=== PATIENT | male | born 1970 | race Caucasian/White ===

== ENCOUNTER 2016-10-09 12:34 | Emergency (ER) | payer SELFPAY ==
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
--- NOTE | 2016-10-09 14:34 | RAD ---
Indication: Right hip and pelvis pain. CT of the pelvis was obtained in the axial plane. Sagittal and coronal reconstructed images were obtained. The iliac crest and ilium shows no fracture. Sacroiliac joints are intact. The lower lumbar spine demonstrates no evidence of fracture. The acetabulum is intact. No fracture is identified. No joint effusion The bladder is otherwise unremarkable. Seminal vesicles are otherwise unremarkable. IMPRESSION: No fracture of the right hip or pelvis is noted.
[2016-10-09] MEDS ORDERED: Ibuprofen TAB* 600 MG PO ONE (14:41)
[2016-10-09 15:02] VITALS: BP 134/85
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
== END 2016-10-09 15:02 | disposition home or self-care (01) ==
LOC: ED 12:34
DX: S06.0X0A Concussion without loss of consciousness, initial encounter (principal); S70.01XA Contusion of right hip, initial encounter; S16.1XXA Strain of muscle, fascia and tendon at neck level, initial encounter; S39.012A Strain of muscle, fascia and tendon of lower back, initial encounter; S70.00XA Contusion of unspecified hip, initial encounter; R11.10 Vomiting, unspecified; Z72.0 Tobacco use; V49.9XXA Car occupant (driver) (passenger) injured in unspecified traffic accident, initial encounter; Y93.9 Activity, unspecified; Y92.9 Unspecified place or not applicable
CPT/HCPCS: 70450; 72125; 72128; 72131; 72192; 99283; A9270-GY

== ENCOUNTER 2017-06-19 13:35 | Emergency (ER) | payer BC, OTHER ==
--- NOTE | 2017-06-19 15:26 | RAD ---
INDICATION: Soft tissue injury to the proximal interphalangeal joints of the third and fourth digits after accidentally punching a concrete wall. COMPARISON: None. TECHNIQUE: 4 views of the right hand were obtained. FINDINGS: The adequately corticated bones are in normal alignment. No significant focal osseous abnormality or fracture is seen. Joint spaces appear maintained. IMPRESSION: Normal right hand radiograph. If the patient's symptoms persist, follow-up imaging is recommended.
--- NOTE | 2017-06-19 15:28 | ED ---
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 Patient states injuries did bleed a lot in the beginning but have since become controlled. No on anticoagulants. Denies any other injuries. Has full range of motion however does cause pain in 4/5th digit. 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 Denies numbness/tingling. Unknown last tetanus. Is right hand dominant. No other complaints. No PMHx. - History of Current Complaint Stated Complaint: RIGHT HAND LAX Time Seen by Provider: 06/19/17 13:57 Hx Obtained From: Patient Mechanism of Injury: Sharp/Blunt Trauma Onset/Duration: Sudden Onset, Lasting Hours, Still Present Aggravating: Movement Alleviating: Compression Timing: Constant Onset Severity: Mild Current Severity: Mild Pain Intensity: 2 Pain Scale Used: 0-10 Numeric Associated Signs & Symptoms: Pain, Bruising, Joint Swelling - PIP of 4/5th digit Related Hx: Dominant Hand (Right) - Allergy/Home Medications Allergies/Adverse Reactions: Allergies Allergy/AdvReac Type Severity Reaction Status Date / Time No Known Allergies Allergy Verified 05/25/17 13:52 PMH/Surg Hx/FS Hx/Imm Hx Endocrine/Hematology History: Denies: Hx Diabetes, Hx Thyroid Disease Cardiovascular History: Denies: Hx Hypertension, Hx Pacemaker/ICD Respiratory History: Denies: Hx Asthma, Hx Chronic Obstructive Pulmonary Disease (COPD) GI History: Denies: Hx Ulcer History: Denies: Hx Renal Disease Musculoskeletal History: Reports: Hx Back Problems Sensory History: Denies: Hx Hearing Aid Psychiatric History: Denies: Hx Panic Disorder - Surgical History Surgery Procedure, Year, and Place: Tonsillectomy age 15 - Immunization History Date of Tetanus Vaccine: unknown, updated at todays visit 06/19/17 Immunizations Up to Date: Yes Infectious Disease History: No Infectious Disease History: Denies: Hx Clostridium Difficile, Hx Hepatitis, Hx Human Immunodeficiency Virus (HIV), Hx of Known/Suspected MRSA, Hx Shingles, Hx Tuberculosis, History Other Infectious Disease, Traveled Outside the [place] in Last 30 Days - Family History Known Family History: Positive: None Family History: Mother due to arteriosclerosis. - Social History Alcohol Use: Occasionally Substance Use Type: Reports: None Smoking Status (MU): Former Smoker Type: Cigarettes, eCigarettes Amount Used/How Often: 1/2 ppd Review of Systems Constitutional: Negative Cardiovascular: Negative Respiratory: Negative Positive: Arthralgia, Myalgia - 4/5th digit right hand Positive: Other - lacerations 4/5th digit right hand Neurological: Negative All Other Systems Reviewed And Are Negative: Yes Physical Exam Triage Information Reviewed: Yes Vital Signs On Initial Exam: Initial Vitals Temp Pulse Resp BP Pulse Ox 98.5 F 89 17 135/75 98 06/19/17 13:48 06/19/17 13:48 06/19/17 13:48 06/19/17 13:48 06/19/17 13:48 Vital Signs Reviewed: Yes Appearance: Positive: Well-Appearing, No Pain Distress, Well-Nourished Skin: Positive: Warm, Skin Color Reflects Adequate Perfusion, Dry, Other - superficial skin avulsions of 4/5th digit at PIP joints 1cm in length, linear. bleeding controlled, tender to touch. rest of skin exam normal. Negative: Cold , Numb, Cyanosis @, Erythema @ Eyes: Positive: Conjunctiva Clear ENT: Positive: Hearing grossly normal Neck: Positive: Supple, Nontender Respiratory/Lung Sounds: Positive: Clear to Auscultation, Breath Sounds Present. Negative: Rales, Rhonchi, Wheezes Cardiovascular: Positive: Normal, RRR, Pulses are Symmetrical in both Upper and Lower Extremities - 2+ radial b/l. Negative: Murmur, Rub Musculoskeletal: Positive: Strength/ROM Intact - however causes pain at 4/5th digit at PIP due to injury and edema, Pain @ - 4/5th PIP right hand, Edema Right - 4/5th PIP due to injury with laceration/skin avulsion, Other - no crepitus or obvious deformity other than lacerations. Negative: Limited @, Interruption @ Neurological: Positive: Normal, Sensory/Motor Intact - normal sensation, Alert, Oriented to Person Place, Time, NV Bundle Intact Distally, Normal Gait Procedures - Laceration/Wound Repair 1 Location: upper extremity - 4th digit right hand at PIP Description: Linear Length, Depth and Shape: 1cm superficial length linear 4th digit at PIP Betadine Prep?: No Irrigated w/ Saline (ccs): 200 Laceration/Wound Explored: clean, no foreign body removed Closure: Skin Adhesive, SteriStrips - 2 Sterile Dressing Applied?: Yes 2 Location: upper extremity - right 5th digit Description: Linear Length, Depth and Shape: right 5th digit linear 1 cm laceration/skin avulsion at PIP Irrigated w/ Saline (ccs): 300 Laceration/Wound Explored: clean, no foreign body removed Closure: Skin Adhesive, SteriStrips - 2 Sterile Dressing Applied?: Yes Diagnostics - Vital Signs Vital Signs Temp Pulse Resp BP Pulse Ox 06/19/17 13:48 98.5 F 89 17 135/75 98 - Laboratory Lab Statement: Any lab studies that have been ordered have been reviewed, and results considered in the medical decision making process. - Radiology right hand Xray Interpretation: No Acute Changes - Normal right hand radiograph. If the patient's symptoms persist, follow-up imaging is recommended. Radiology Interpretation Completed By: Radiologist - and myself Laceration Repair Course/Dx - Course Course Of Treatment: no concern for tendon bony involvement. xray obtained and negative for fracture/discloation. due to PE findings, skin avulsion/ lacerations were irrigated and closed with steri stripsx2 and skin adhesive. patient tolerated procedure well. Topical LET was used to numb area, to make procedure more comfortable. lacerations became well approximated and closed nicely. wrapped in sterile dressing also keeping fingers from bending for 24-48 hours until wounds are somewhat healed. No concern for infection at this time. tetanus updated today. aware of worsening signs and symptoms. keep clean and dry. do not pick at glue/steri strips. follow up with pcp to ensure improvement. - Differential Dx Differental Diagnoses: Abrasion, Avulsion, Fracture, Laceration - Clinical Impression Provider Diagnoses: Avulsion of skin of finger Discharge - Discharge Plan Condition: Stable Disposition: HOME Patient Education Materials: Skin Avulsion (ED), Skin Adhesive Care (ED), Steristrips (ED) Forms: *Work Release Referrals: Juan Alberto Villavicencio MD [Primary Care Provider] - Additional Instructions: Rest, apply cool compresses. Refrain from bending fingers until wounds heal. Avoid from getting wet for at least 48 hours. Take ibuprofen for pain and inflammation. After 2 days gently rinse and keep clean and dry thoroughly. Avoid submerging in water. Watch for signs of infection as discussed, if develops please seek medical attention promptly. Do not pick at glue or steri strips, let fall off on own. If any complications please return/seek medical attention. Follow up with PCP.
[2017-06-19] MEDS ORDERED: Lidocaine/Epineph/Tetraca SOL* (LET solution) 4 ML BTL TOPICAL ONE (15:49)
[2017-06-19] MEDS ORDERED: Tetan/Diph/Pertus SYR(Tdap)* 0.5 ML SYR(BOOSTRIX) use SYR IM ONE (15:58)
[2017-06-19 16:49] VITALS: BP 128/78
== END 2017-06-19 16:49 | disposition home or self-care (01) ==
LOC: ED 13:35
DX: S61.219A Laceration without foreign body of unspecified finger without damage to nail, initial encounter (principal); W22.01XA Walked into wall, initial encounter; Y92.9 Unspecified place or not applicable; Z23 Encounter for immunization; Z87.891 Personal history of nicotine dependence
CPT/HCPCS: 90471; 90715; 99282

== ENCOUNTER 2017-11-15 08:01 | Emergency (ER) | payer BC ==
[2017-11-15 08:12] VITALS: BP 148/89
--- NOTE | 2017-11-15 08:23 | UC ---
Back Pain HPI - HPI Summary HPI Summary: R low back pain starting a few days ago, no antecedent trauma. No hx of surgery or cancer. Bowel/bladder/sensory normal. Feels pain into R buttock but not in leg. Does have hx of similar back pain, has seen PT and chiropractor before. - History of Current Complaint Chief Complaint: UCBackPain Stated Complaint: BACK PAIN Hx Obtained From: Patient Onset/Duration: Gradual Onset, Lasting Days Timing: Constant Severity Initially: Mild Severity Currently: Moderate Pain Intensity: 9 Character: Dull, Aching, Stiffness Aggravating Factor(s): Lifting, Bending, Other - sitting Alleviating Factor(s): Rest, Position Associated Signs And Symptoms: Positive: Negative. Negative: Fever, Weakness, Numbness, Tingling, Bladder Incontinence, Bowel Incontinence Related History: Previous Back Injury - fx coccyx - Risk Factors AAA Risk Factors: Negative - Allergies/Home Medications Allergies/Adverse Reactions: Allergies Allergy/AdvReac Type Severity Reaction Status Date / Time No Known Allergies Allergy Verified 11/15/17 08:12 PMH/Surg Hx/FS Hx/Imm Hx Previously Healthy: Yes - Surgical History Surgical History: Yes Surgery Procedure, Year, and Place: Tonsillectomy age 15 - Family History Known Family History: Positive: Cardiac Disease Family History: Mother due to arteriosclerosis. - Social History Occupation: Employed Full-time - [employer] Alcohol Use: Occasionally Substance Use Type: None Smoking Status (MU): Light Every Day Tobacco Smoker Type: Cigarettes, eCigarettes Amount Used/How Often: 1/2 ppd Review of Systems Constitutional: Negative Skin: Negative Eyes: Negative ENT: Negative Respiratory: Negative Cardiovascular: Negative Gastrointestinal: Negative Genitourinary: Negative Motor: Negative Neurovascular: Negative Musculoskeletal: Arthralgia, Decreased ROM Neurological: Negative Psychological: Negative Is Patient Immunocompromised?: No All Other Systems Reviewed And Are Negative: Yes Physical Exam Triage Information Reviewed: Yes Appearance: Well-Appearing, Pain Distress - mod Vital Signs: Initial Vital Signs Temp 97.2 F 11/15/17 08:07 Pulse 89 11/15/17 08:07 Resp 18 11/15/17 08:07 BP 148/89 11/15/17 08:07 Pulse Ox 98 11/15/17 08:07 Vital Signs Reviewed: Yes Eye Exam: Normal Eyes: Positive: Conjunctiva Clear ENT Exam: Normal ENT: Positive: Normal ENT inspection, Hearing grossly normal, Pharynx normal, TMs normal Dental Exam: Normal Neck exam: Normal Neck: Positive: Supple, Nontender, No Lymphadenopathy Respiratory Exam: Normal Respiratory: Positive: Chest non-tender, Lungs clear, Normal breath sounds, No respiratory distress, No accessory muscle use Cardiovascular Exam: Normal Cardiovascular: Positive: RRR, No Murmur Musculoskeletal Exam: Other - diminish rom in low back Musculoskeletal: Positive: Strength Intact, ROM Intact Neurological Exam: Normal Neurological: Positive: Alert Psychological Exam: Normal Skin Exam: Normal Back Pain Course/Dx - Differential Dx/Diagnosis Provider Diagnoses: Low back strain Discharge - Sign-Out/Discharge Documenting (check all that apply): Discharge - Discharge Plan Condition: Stable Disposition: HOME Prescriptions: Etodolac 300 mg PO TID #30 capsule Metaxalone 800 mg PO Q12HR PRN #20 tablet PRN Reason: pain Tizanidine HCl [Zanaflex] 2 mg PO TID PRN #30 cap PRN Reason: Pain Patient Education Materials: Low Back Strain (ED) Forms: *Work Release Referrals: Juan Alberto Villavicencio MD [Primary Care Provider] - 5 Days Additional Instructions: Continue to change positions, stay as active, avoid heavy lifting. Use ice or heat (whatever works) for pain control. - Billing Disposition and Condition Condition: STABLE Disposition: HOME
== END 2017-11-15 08:43 | disposition home or self-care (01) ==
LOC: UCEAST 08:01
DX: S39.012A Strain of muscle, fascia and tendon of lower back, initial encounter (principal); X58.XXXA Exposure to other specified factors, initial encounter; Y93.9 Activity, unspecified; Y92.9 Unspecified place or not applicable; Z87.81 Personal history of (healed) traumatic fracture; F17.210 Nicotine dependence, cigarettes, uncomplicated
CPT/HCPCS: 99212; G0463

== ENCOUNTER 2018-09-02 11:31 | Emergency (ER) | payer BC, OTHER ==
--- OUTSIDE RECORDS SUMMARY | 2018-09-02 11:41 | XMS REPORT | Continuity of Care Document ---
:1970 External Reference #:[id number] Author Name Cece Nava O.D. Address [address] [place] [address] Care Team Providers Name Role Phone Juan Alberto Villavicencio M.D. Primary Care Physician Unavailable Payers Type Date Identification Numbers Payment Provider Subscriber Policy Number: [id number] [facility] [place] PayID: [id number] [address] [place] [id number] Advance Directives Description No Information Available Problems Date Description Provider Status Onset: 06/15/2015 Gastroesophageal reflux disease Cece Nava O.D. Active Onset: 06/15/2015 Essential hypertension Cece Nava O.D. Active Onset: 06/15/2015 Hypercholesterolemia Cece Nava O.D. Active Onset: 07/15/2017 Viral conjunctivitis Cece Nava O.D. Active Onset: 06/25/2015 Myopia Cece Nava O.D. Active Onset: 06/25/2015 Corneal opacity Cece Nava O.D. 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 18 days, 2xday for 3 days, then 1xday for 3 days, both eyes Tobradex 07/15/20 Hx Suspension 0.3-0.1% 10ml 1 drop B30.8 Cece HarmonJude 18 - 4xday , 08/09/19 both O.D. 18 eyes for 4 days then 2xday for 4days. Immunizations Description No Information Available Vital Signs Description No Information Available Results Description No Information Available Procedures Date Code Description Status 07/15/2017 92910 Determination Of Refractive State Completed 07/15/2017 20139 Est Patient Comprehensive Exam Completed 07/14/2016 01090 Determination Of Refractive State Completed 07/14/2016 34549 Est Patient Comprehensive Exam Completed 06/25/2015 69387 Determination Of Refractive State Completed 06/25/2015 24173 Est Patient Comprehensive Exam Completed 06/21/2014 94049 Determination Of Refractive State Completed 06/21/2014 21724 Est Patient Comprehensive Exam Completed 06/21/2014 101 Level 1 SCL Fit/Refit Completed 04/14/2014 08426 Est Patient Intermediate Exam Completed 06/09/2013 69365 Determination Of Refractive State Completed 06/09/2013 89074 Est Patient Comprehensive Exam Completed 06/09/2013 201 Refit - No Change In Fit Completed 05/06/2013 82589 Est Patient Intermediate Exam Completed 12/15/2011 201 Refit - No Change In Fit Completed 12/15/2011 43422 Est Patient Comprehensive Exam Completed 12/15/2011 74058 Determination Of Refractive State Completed 08/10/2009 66711 Determination Of Refractive State Completed 08/10/2009 64400 Est Patient Comprehensive Exam Completed 08/10/2009 201 Refit - No Change In Fit Completed 03/17/2008 38023 Determination Of Refractive State Completed 03/17/2008 91066 Est Patient Comprehensive Exam Completed 03/17/2008 201 Refit - No Change In Fit Completed 04/07/2007 67573 Determination Of Refractive State Completed 04/07/2007 41754 Est Patient Comprehensive Exam Completed 04/07/2007 201 Refit - No Change In Fit Completed 11/21/2005 37606 Determination Of Refractive State Completed 11/21/2005 02449 Est Patient Comprehensive Exam Completed 11/21/2005 202 Refit SCL Completed 10/23/2003 45577 Determination Of Refractive State Completed 10/23/2003 01840 Est Patient Comprehensive Exam Completed Encounters Type Date Location Provider Dx Diagnosis Office Visit 07/23/2017 Cece Kessler B30.8 Other viral 8:30a juliet WHALEY O.D. conjunctivitis Office Visit 04/15/2014 Eliana Kessler, 370.00 Corneal Ulcer 10:00a juliet WHALEY O.D. (Infectious) Office Visit 2013 Cece Kessler 370.00 Corneal Ulcer 2:00p juliet WHALEY O.D. (Infectious) Plan of Treatment 08/11/2018 - Cece Nava O.D.H17.89 Other corneal scars and opacitiesFollow up:1 Year Follow Up / CL FIT You can expect to have your eyes dilated at your next visit. If Dr. Nava orders any additional testing, it may require extra time. We recommend that you bring sunglasses,as dilation drops often make you light sensitive until they wear off. We always recommend you bring someone to drive you home if you are uncomfortable driving with your eyes dilated. If you have any questions before your next visit, feel free to call our office at .[email or web address] Myopia, bilateralComments:You have Myopia, or near sightedness. I have given you a prescription for glasses.
--- NOTE | 2018-09-02 11:59 | ED ---
Influenza-Like Illness - HPI Summary HPI Summary: This patient is a 48 year old male presenting to the emergency room with a cc of flu like sx that began two days ago and have progressed. The patient states he has been having a fever, myalgia, chest tightness, a productive cough with brown sputum, and diaphoresis at night. He states the constant cough is giving him a headache. He states the chest tightness is 6/10 in severity and is worse when he coughs. He has no past medical history and only has had his tonsils removed for surgery. He quit smoking cigarettes 4 year ago. - History of Current Complaint Chief Complaint: EDFluSymptoms Time Seen by Provider: 09/02/18 11:37 Hx Obtained From: Patient Onset/Duration: Lasting Days - 2, Still Present Severity: Moderate Associated Signs & Symptoms: Fever, Myalgia, Cough, Headache - Allergy/Home Medications Allergies/Adverse Reactions: Allergies Allergy/AdvReac Type Severity Reaction Status Date / Time No Known Allergies Allergy Verified 09/02/18 11:50 PMH/Surg Hx/FS Hx/Imm Hx Endocrine/Hematology History: Denies: Hx Diabetes, Hx Thyroid Disease Cardiovascular History: Denies: Hx Hypertension, Hx Pacemaker/ICD Respiratory History: Denies: Hx Asthma, Hx Chronic Obstructive Pulmonary Disease (COPD) GI History: Denies: Hx Gastrointestinal Bleed, Hx Ulcer History: Denies: Hx Renal Disease Musculoskeletal History: Reports: Hx Back Problems Sensory History: Denies: Hx Hearing Aid Neurological History: Comment Only: Other Neuro Impairments/Disorders - PAIN CLINIC PT Psychiatric History: Denies: Hx Attention Deficit Hyperactivity Disorder, Hx Panic Disorder - Surgical History Surgery Procedure, Year, and Place: Tonsillectomy age 15. CYST REMOVED FROM FINGER - Immunization History Date of Tetanus Vaccine: unknown, updated at todays visit 06/19/17 Immunizations Up to Date: Yes Infectious Disease History: No Infectious Disease History: Denies: Hx Clostridium Difficile, Hx Hepatitis, Hx Human Immunodeficiency Virus (HIV), Hx of Known/Suspected MRSA, Hx Shingles, Hx Tuberculosis, History Other Infectious Disease, Traveled Outside the [place] in Last 30 Days - Family History Known Family History: Positive: Cardiac Disease Family History: Mother due to arteriosclerosis. - Social History Alcohol Use: Weekly Alcohol Amount: 10 DRINKS/WEEK Substance Use Type: Reports: None Smoking Status (MU): Light Every Day Tobacco Smoker Type: eCigarettes Amount Used/How Often: 1/2 ppd Length of Time of Smoking/Using Tobacco: currently smokes e-cigarettes Have You Smoked in the Last Year: Yes Review of Systems Positive: Fever, Skin Diaphoresis Positive: Chest Pain Positive: Cough Positive: Myalgia Positive: Headache All Other Systems Reviewed And Are Negative: Yes Physical Exam - Summary Physical Exam Summary: VITAL SIGNS: Reviewed. GENERAL: Patient is a well-developed and nourished male who is lying comfortable in the stretcher. Patient is not in any acute respiratory distress. HEAD AND FACE: No signs of trauma. No ecchymosis, hematomas or skull depressions. No sinus tenderness. EYES: PERRLA, EOMI x 2, No injected conjunctiva, no nystagmus. EARS: Hearing grossly intact. Ear canals and tympanic membranes are within normal limits. MOUTH: Oropharynx within normal limits. NECK: Supple, trachea is midline, no adenopathy, no JVD, no carotid bruit, no c- spine tenderness, neck with full ROM. CHEST: Symmetric, no tenderness at palpation LUNGS: Clear to auscultation bilaterally. No wheezing or crackles. CVS: Regular rate and rhythm, S1 and S2 present, no murmurs or gallops appreciated. ABDOMEN: Soft, non-tender. No signs of distention. No rebound no guarding, and no masses palpated. Bowel sounds are normal. EXTREMITIES: FROM in all major joints, no edema, no cyanosis or clubbing. NEURO: Alert and oriented x 3. No acute neurological deficits. Speech is normal and follows commands. SKIN: Dry and warm Triage Information Reviewed: Yes Vital Signs On Initial Exam: Initial Vitals Temp Pulse Resp BP Pulse Ox 97.6 F 82 16 133/83 99 09/02/18 11:33 09/02/18 11:33 09/02/18 11:33 09/02/18 11:33 09/02/18 11:33 Vital Signs Reviewed: Yes Diagnostics - Vital Signs Vital Signs Temp Pulse Resp BP Pulse Ox 09/02/18 11:33 97.6 F 82 16 133/83 99 - Laboratory Result Diagrams: 09/02/18 11:54 09/02/18 11:54 Lab Statement: Any lab studies that have been ordered have been reviewed, and results considered in the medical decision making process. - Radiology CXR Radiology Interpretation Completed By: Radiologist Summary of Radiographic Findings: no active cardiopulmonary disease. ED physician has reviewed this report. - EKG 1207 Cardiac Rate: NL EKG Rhythm: Sinus Rhythm - at 74 BPM Summary of EKG Findings: nml axis, no ST elevations Flu Symptom Course/Dx - Course Assessment/Plan: Blood work without a significant abnormality except 4 CRP of 20.95 influenza A is positive. Chest x-ray shows no acute pathology. In the ED course the patient was having some wheezing therefore he was given an albuterol treatment. EKG shows normal sinus rhythm without any ST elevations. I believe that his symptoms are secondary to the influenza A. Therefore the patient was discharged home with follow-up with primary care physician. The patient will be given given an rx for Tamiflu. Patient was instructed to return to the emergency department if he develops any other symptom. - Diagnoses Differential Diagnosis/HQI/PQRI: Positive: Bronchitis, Broncholiolitis, Influenza, Pneumonia, Upper Respiratory Infection Provider Diagnoses: Influenza A Discharge - Sign-Out/Discharge Documenting (check all that apply): Patient Departure Patient Received Moderate/Deep Sedation with Procedure: No - Discharge Plan Condition: Stable Disposition: HOME Prescriptions: Oseltamivir CAP* [Tamiflu CAP*] 75 mg PO BID #10 cap Patient Education Materials: Influenza (ED) Forms: *Work Release Referrals: Juan Alberto Villavicencio MD [Primary Care Provider] - Additional Instructions: Follow up with your primary care physician in 1-3 days. RETURN TO THE EMERGENCY DEPARTMENT FOR CHANGING OR WORSENING SYMPTOMS. - Billing Disposition and Condition Condition: STABLE Disposition: Home - Attestation Statements Document Initiated by Maria Luz: Yes Documenting Scribe: Chris Navarro Provider For Whom Maria Luz is Documenting (Include Credential): Herman Yo MD Scribe Attestation: Chris Manzo , scribed for Herman Yo MD on 09/03/18 at 2048. Scribe Documentation Reviewed: Yes Provider Attestation: The documentation as recorded by the Chris irene accurately reflects the service I personally performed and the decisions made by me, Herman Yo MD Status of Scribe Document: Viewed
[2018-09-02 12:15] LABS: ABS Basophils 0 10^3/ul (0-0.2); ABS Eosinophils 0.1 10^3/ul (0-0.6); ABS Lymphocytes 0.7 10^3/ul (1.0-4.8); ABS Monocytes 0.6 10^3/ul (0-0.8); ABS Neutrophils 2.3 10^3/ul (1.5-7.7); ABS Nucleated RBC 0 10^3/ul; Eosinophil % 1.7 %; Hematocrit 45 % (42-52); Hemoglobin 15.4 g/dl (14.0-18.0); Lymphocyte % 17.9 %; Mean Corpuscular HGB Conc 34 g/dl (31-36); Mean Corpuscular Hemoglobin 28 pg (27-31); Mean Corpuscular Volume 84 fL (80-94); Mean Platelet Volume 7.5 fL (7.4-10.4); Nucleated Red Blood Cells % 0.1; Platelet Count 191 10^3/ul (150-450); Red Blood Count 5.42 10^6/ul (4.00-5.40); Red Cell Distribution Width 13 % (10.5-15); White Blood Count 3.6 10^3/ul (3.5-10.8)
[2018-09-02 12:22] LABS: Influenza A Molecular POSITIVE (Negative)
[2018-09-02] MEDS ORDERED: Albuterol/Ipratropium NEB.SOL* Albuterol 2.5 MG/Ipratropium 0.5 MG 3 ML INH ONE (12:28)
[2018-09-02 12:35] LABS: CKMB ng/mL 0.9 ng/mL (0.6-6.3)
[2018-09-02 12:48] LABS: Albumin 4.4 g/dL (3.2-5.2); Albumin/Globulin Ratio 1.8 (1-3); BUN/Creatinine Ratio 9.7 (8-20); C Reactive Protein 28.06 mg/L (<8.01); Calcium 9.4 mg/dL (8.6-10.3); EGFR African American 93.7 (>60); EGFR Non-African American 77.4 (>60); Globulin 2.5 g/dL (2-4); Potassium 4.3 mmol/L (3.5-5.0); Total Bilirubin 0.3 mg/dL (0.2-1.0); Total Protein 6.9 g/dL (6.4-8.9)
[2018-09-02 13:28] VITALS: BP 119/63
== END 2018-09-02 13:28 | disposition home or self-care (01) ==
LOC: ED 11:31
DX: J10.1 Influenza due to other identified influenza virus with other respiratory manifestations (principal); F17.290 Nicotine dependence, other tobacco product, uncomplicated
CPT/HCPCS: 36415; 71046; 80053; 82550; 82553; 83605; 84484; 85025; 86140; 93005; 99282; A9270-GY

== ENCOUNTER 2019-07-09 14:12 | Emergency (ER) | payer BC, OTHER ==
[2019-07-09 14:24] VITALS: BP 127/74
--- NOTE | 2019-07-09 14:51 | UC ---
Respiratory Complaint HPI - HPI Summary HPI Summary: The patient is a 44-year-old male with a 2 day history of nasal congestion cough and headache. He denies any fever or chills. He denies any myalgias. He states that his cough is productive of phlegm. He has some mild chest pain with coughing spells. He denies any nausea vomiting or diarrhea. He has no history of asthma or pneumonia. - History of Current Complaint Chief Complaint: UCGeneralIllness Stated Complaint: CONGESTED Time Seen by Provider: 07/09/19 14:31 Hx Obtained From: Patient Onset/Duration: Gradual Onset Timing: Constant Severity Initially: Mild Severity Currently: Mild Pain Intensity: 4 Pain Scale Used: 0-10 Numeric Character: Cough: Productive Aggravating Factors: Exertion, Other - talking Associated Signs And Symptoms: Positive: Nasal Congestion, Sinus Discomfort. Negative: Dyspnea, Fever, Chills, Pleuritic Chest Pain, Wheezing, Hemoptysis, Dizziness, Calf Pain, Calf Swelling, Edema, URI, Hoarseness - Allergies/Home Medications Allergies/Adverse Reactions: Allergies Allergy/AdvReac Type Severity Reaction Status Date / Time No Known Allergies Allergy Verified 07/09/19 14:26 Home Medications: Home Medications Acetaminophen [Tylenol Extra Strength] 500 mg PO TID PRN 07/09/19 [History Confirmed 07/09/19] PMH/Surg Hx/FS Hx/Imm Hx Previously Healthy: Yes - Surgical History Surgical History: Yes Surgery Procedure, Year, and Place: Tonsillectomy age 15. CYST REMOVED FROM FINGER - Family History Known Family History: Positive: Cardiac Disease Negative: Hypertension, Diabetes Family History: Mother due to arteriosclerosis. - Social History Alcohol Use: Weekly Alcohol Amount: 10 DRINKS/WEEK Substance Use Type: None Smoking Status (MU): Light Every Day Tobacco Smoker Type: eCigarettes Amount Used/How Often: 1/2 ppd Length of Time of Smoking/Using Tobacco: currently smokes e-cigarettes Have You Smoked in the Last Year: Yes When Did the Patient Quit Smoking/Using Tobacco: used to smoke cigarettes Review of Systems All Other Systems Reviewed And Are Negative: Yes Constitutional: Positive: Negative Skin: Positive: Negative Eyes: Positive: Negative ENT: Positive: Nasal Discharge, Sinus Congestion, Sinus Pain/Tenderness Respiratory: Positive: Cough Cardiovascular: Positive: Negative Gastrointestinal: Positive: Negative Genitourinary: Positive: Negative Motor: Positive: Negative Neurovascular: Positive: Negative Musculoskeletal: Positive: Negative Neurological: Positive: Headache Psychological: Positive: Negative Physical Exam Triage Information Reviewed: Yes Appearance: Well-Appearing, No Pain Distress, Well-Nourished Vital Signs: Initial Vital Signs Temp 97 F 07/09/19 14:19 Pulse 88 07/09/19 14:19 Resp 18 07/09/19 14:19 BP 127/74 07/09/19 14:19 Pulse Ox 97 07/09/19 14:19 Vital Signs Reviewed: Yes Eyes: Positive: Conjunctiva Clear ENT: Positive: Hearing grossly normal, Nasal congestion, Nasal drainage, TMs normal, Uvula midline. Negative: Tonsillar swelling, Tonsillar exudate, Trismus , Muffled voice, Hoarse voice Dental Exam: Normal Neck: Positive: Supple, Nontender, No Lymphadenopathy Respiratory: Positive: Lungs clear, Normal breath sounds, No respiratory distress, No accessory muscle use, Respiratory distress Cardiovascular: Positive: RRR, No Murmur Abdomen Description: Positive: Nontender Musculoskeletal: Positive: ROM Intact, No Edema Neurological: Positive: Alert Psychological Exam: Normal Skin Exam: Normal Diagnostics - Radiology No standard instances Radiology Interpretation Completed By: Radiologist Summary of Radiographic Findings: NAD Respiratory Course/Dx - Differential Dx/Diagnosis Provider Diagnosis: Acute viral bronchitis Discharge ED - Sign-Out/Discharge Documenting (check all that apply): Patient Departure All imaging exams completed and their final reports reviewed: Yes - Discharge Plan Condition: Stable Disposition: HOME Patient Education Materials: Acute Bronchitis (ED) Referrals: Juan Alberto Villavicencio MD [Primary Care Provider] - 4 Days (if not better) - Billing Disposition and Condition Condition: STABLE Disposition: Home
[2019-07-09] MEDS ORDERED: Albuterol HFA INHALER* 8 gm MDI INH ONE (15:03)
== END 2019-07-09 15:39 | disposition home or self-care (01) ==
LOC: UCEAST 14:12
DX: J20.8 Acute bronchitis due to other specified organisms (principal); F17.290 Nicotine dependence, other tobacco product, uncomplicated
CPT/HCPCS: 71046; 99213; A9270-GY; G0463; J7512